=== PATIENT | female | born 1970 | race Caucasian/White ===

== ENCOUNTER 2019-12-04 02:16 | Inpatient (IN) | payer MEDICARE, OTHER ==
[~2019-12-04] VITALS: Ht 175.3 cm; Wt 72.6 kg
--- NOTE | 2019-12-04 02:40 | NUR ---
PT AAOX4. AMBULATORY. BIBRA C/O EPIGASTRIC PAIN AND NAUSEA X 1 DAY. PT STATES EPIGASTRIC PAIN THAT "SPASMS AND RADIATES TO BACK" PLACED ON MONITOR AND PULSE OX. AWAITING MD FOR EVLA.
--- NOTE | 2019-12-04 02:49 | NUR ---
URINE COLLECTED AND SENT TO LAB
[2019-12-04] MEDS ORDERED: LIDOCAINE VISCOUS 2% UD 15 ML UDC ONE (02:58)
[2019-12-04] MEDS ORDERED: MAG HYDROX/AL HYDROX/SIMETH 30 ML UDC ONE (02:58)
[2019-12-04] MEDS ORDERED: DICYCLOMINE HCL 10 MG/5 ML UDC ONE (02:59)
[2019-12-04] MEDS ORDERED: DICYCLOMINE HCL 10 MG/5 ML UDC PO ONE (03:00)
[2019-12-04] MEDS ORDERED: MAG HYDROX/AL HYDROX/SIMETH 30 ML UDC PO ONE (03:00)
[2019-12-04] MEDS ORDERED: LIDOCAINE VISCOUS 2% UD 15 ML UDC MM ONE (03:00)
--- NOTE | 2019-12-04 03:10 | NUR ---
HAND VIOLIN MAKER AT BEDSIDE
[2019-12-04 03:14] LABS: APPEARANCE,URINE Clear (CLEAR); BILIRUBIN,URINE Negative (NEGATIVE); BLOOD, URINE Negative Ery/uL (NEGATIVE); COLOR,URINE Yellow (YELLOW); KETONES,URINE 40 (NEGATIVE); LEUKOCYTE ESTERASE ,URINE Negative (NEGATIVE); NITRITE, URINE Negative (NEGATIVE); PH,URINE 5.5 (5.0-8.0); PROTEIN,URINE Negative (NEGATIVE); UGLUCOSE Negative (NEGATIVE); UROBILINOGEN,URINE 0.2 EU/dL (0.2)
[2019-12-04 03:14] LABS: BASOPHILS # (AUTO) 0.1 /CMM (0.0-0.2); BASOPHILS % (AUTO) 0.8 % (0.0-2.0); EOSINOPHILS % (AUTO) 1.1 % (0.0-6.0); HEMATOCRIT 41 % (33-45); HEMOGLOBIN 13.5 g/dL (11.5-14.8); LYMPHOCYTES # (AUTO) 1.2 /CMM (0.8-4.8); LYMPHOCYTES % (AUTO) 16.4 % (20.0-44.0); MEAN CORPUSCULAR HGB CONC 33 g/dl (31.0-36.0); MEAN CORPUSCULAR VOLUME 94 fL (82-100); MONOCYTES # (AUTO) 0.4 /CMM (0.1-1.30); MONOCYTES % (AUTO) 5.3 % (2.0-12.0); NEUTROPHILS # (AUTO) 5.7 /CMM (1.8-8.9); NEUTROPHILS % (AUTO) 76.4 % (43.0-81.0); PLATELET COUNT (AUTO) 201 /CMM (150-450); RED BLOOD CELL COUNT(AUTO) 4.36 MIL/uL (4.0-5.2); WHITE BLOOD COUNT (AUTO) 7.4 K/uL (4.3-11.0)
[2019-12-04 03:23] LABS: CALCIUM, SERUM 9.6 mg/dL (8.5-10.1); CARBON DIOXIDE 26 mmol/L (21-32); CHLORIDE 106 mmol/L (98-107); CREATININE 0.9 mg/dL (0.6-1.3); GLUCOSE 101 mg/dL (74-106); POTASSIUM 3.8 mmol/L (3.5-5.1); SODIUM SERUM 140 mmol/L (136-145); UREA NITROGEN, BLOOD 16 mg/dL (7-18)
[2019-12-04 03:37] LABS: ALANINE AMINOTRANSFERASE 18 U/L (12-78); ALBUMIN 3.7 g/dL (3.4-5.0); ALKALINE PHOSPHATASE 48 U/L (46-116); ASPARTATE AMINOTRANSFERASE 16 U/L (15-37); BILIRUBIN,DIRECT 0.1 mg/dL (0.0-0.2); BILIRUBIN,TOTAL 0.6 mg/dL (0.2-1.0); TOTAL PROTEIN, SERUM 7.1 g/dL (6.4-8.2)
--- NOTE | 2019-12-04 03:46 | NUR ---
XRAY AT BEDSIDE
--- NOTE | 2019-12-04 03:47 | NUR ---
UC AT BEDSIDE
[2019-12-04] MEDS ORDERED: IOHEXOL-300 100 ML VIAL IV ONE (04:09)
[2019-12-04] MEDS ORDERED: CT SWABBABLE VALVE TRANS SET 1 EA INFUS.SET MC ONE (04:09)
[2019-12-04] MEDS ORDERED: IV NS 0.9% 250 ML IV ONE (04:09)
[2019-12-04] MEDS ORDERED: HYDROMORPHONE 1 MG/1 ML DISP.SYRIN ONE ×2 (05:21→06:19)
[2019-12-04] MEDS ORDERED: HYDROMORPHONE 1 MG/1 ML DISP.SYRIN IV ONE ×2 (05:30→07:00)
[2019-12-04] MEDS ORDERED: IV NS 0.9% 1,000 ML IV PRN (06:15)
--- NOTE | 2019-12-04 06:15 | NUR ---
ms bed 115-2
--- NOTE | 2019-12-04 06:25 | NUR ---
VERBAL ORDER FROM DR MENDOZA DILAUDID 1MG IVP ONCE. NEW ORDER NOTED
[2019-12-04] MEDS ORDERED: ONDANSETRON HCL/PF 4 MG/2 ML VIAL IVP PRN ×2 (06:30→11:00)
[2019-12-04] MEDS ORDERED: ACETAMINOPHEN 325 MG TABLET PO PRN ×2 (06:30→11:00)
--- NOTE | 2019-12-04 07:33 | NUR ---
REPORT GIVEN TO BRIGETTE ON FIRST FLOOR
[2019-12-04] MEDS ORDERED: Z GUARD REMEDY 2 OZ OINT TP PRN ×2 (07:40→11:00)
[2019-12-04 07:59] VITALS: BP 118/66
[2019-12-04 08:00] VITALS: BP_SYST 108; BP_SYST 118; BP_DIAS 59; BP_DIAS 66
--- NOTE | 2019-12-04 08:00 | NUR ---
patient wheeled via wheelchair accompanied by emt in no distress, RN assigned at bedside to assume care.
[2019-12-04] MEDS: MORPHINE SULFATE INJ 2 MG/ML DISP.SYRIN IV PRN ×3 (08:38→21:01)
--- NOTE | 2019-12-04 08:43 | NUR ---
RN INITIAL NOTES Received pt from er via wheelchair. A/O x 4. Verbally responsive and able to make needs known. Complain of pain on medial abdomen, 8/10 and describe it as radiating and stubbing. Able to move upper and lower extremities. No edema noted on both upper an lower extremities. Skin is intact. IV line R AC with NS running @75 cc.hr. Morphine given. Will continue to monitor
--- NOTE | 2019-12-04 10:58 | NUR ---
RN NOTES Spoke with jenny Roberson to do low intermittent suction on NGT
[2019-12-04] MEDS ORDERED: HYDROCODONE/APAP 5/325MG 1 EACH TABLET PO PRN (11:00)
[2019-12-04] MEDS ORDERED: MAG HYDROX/AL HYDROX/SIMETH 30 ML UDC PO PRN (11:00)
[2019-12-04] MEDS ORDERED: ZOLPIDEM TARTRATE 5 MG TABLET PO PRN (11:00)
[2019-12-04] MEDS ORDERED: MAGNESIUM HYDROXIDE 30 ML UDC PO PRN (11:00)
[2019-12-04] MEDS: IV D5/0.45 NACL 1,000 ML IV PRN ×2 (13:28→21:05)
--- NOTE | 2019-12-04 13:29 | NUR ---
CNC MECHANIC NOTE PER DR LUCAS OK TO STOP NS IVF ORDERED AND STAR D51/[address] RAMO PATEL AT BEDSIDE OK TO GIVE ICE CHIPS WILL F\U
[2019-12-04 16:00] VITALS: BP 135/79
--- NOTE | 2019-12-04 16:15 | NUR ---
MS RN NOTE PATIENT REFUSING TO HAVE N G TUBE STATED HER BACK OF HER THROAT PAIN REFUSE TO HAVE MORPHINE, DR LÓPEZ NOTIFIED, UNABLE TO REACH DR RALPH
--- NOTE | 2019-12-04 17:07 | NUR ---
MS RN NOTE N GTUBE REMOVED PER PATIENT REQUEST, DR TREVINO NOTIFIED STATED ITS OK FOR NOW, WILL MONITOR FOR VOMITING, NOTIFIED TO DR LÓPEZ THAT CANT REACH DR RALPH GI DOCTOR
--- NOTE | 2019-12-04 19:20 | NUR ---
RN OPENING NOTES RECEIVED PATIENT IN BED, A/OX4, ABLE TO MAKE NEEDS KNOWN. ON ROOM AIR, TOLERATING WELL, NO SOB/RESPIRATORY DISTRESS NOTED. NOT C/O PAIN AT THE MOMENT. STATED SHE WILL ASK FOR PAIN MEDICATION LATER FOR PAIN AND TO HELP HER SLEEP. IV SITE RIGHT AC 20G, FLUSHING AND PATENT, WITH ON GOING D5 1/2 NS RUNNING AT 150CC/HR, NO INFILTRATION NOTED. PER REPORT PATIENT AMBULATORY. SAFETY MEASURES IN PLACE; CALL LIGHT WITHIN REACH, SIDE RAILS UP X2, HOB ELEVATED, BED LOCKED AND IN LOW POSITION. WILL CONT TO MONITOR PT.
[2019-12-04 20:00] VITALS: BP 113/68
[2019-12-05] MEDS: IV D5/0.45 NACL 1,000 ML IV PRN ×2 (03:56→13:48)
[2019-12-05 04:00] VITALS: BP 98/62
[2019-12-05 06:56] LABS: BASOPHILS % (AUTO) 0.4 % (0.0-2.0); HEMATOCRIT 35 % (33-45); HEMOGLOBIN 11.7 g/dL (11.5-14.8); LYMPHOCYTES # (AUTO) 0.8 /CMM (0.8-4.8); LYMPHOCYTES % (AUTO) 16.3 % (20.0-44.0); MEAN CORPUSCULAR HGB CONC 33 g/dl (31.0-36.0); MEAN CORPUSCULAR VOLUME 94 fL (82-100); MONOCYTES # (AUTO) 0.4 /CMM (0.1-1.30); MONOCYTES % (AUTO) 7.9 % (2.0-12.0); NEUTROPHILS # (AUTO) 3.7 /CMM (1.8-8.9); NEUTROPHILS % (AUTO) 73.4 % (43.0-81.0); PLATELET COUNT (AUTO) 159 /CMM (150-450); RED BLOOD CELL COUNT(AUTO) 3.76 MIL/uL (4.0-5.2)
--- NOTE | 2019-12-05 06:58 | NUR ---
RN CLOSING NOTES PATIENT SLEEPING IN BED, BUT EASY TO AROUSE, A/OX4. NO ACUTE CHANGES THROUGHOUT SHIFT. KEPT NPO. ON ROOM AIR, TOLERATING WELL, NO SOB/RESPIRATORY DISTRESS NOTED. NOT C/O PAIN AT THE MOMENT. IV SITE RIGHT FA 22G, FLUSHING AND PATENT, WITH ON GOING D5 1/2 NS RUNNING AT 150CC/HR, NO INFILTRATION NOTED. SAFETY MEASURES IN PLACE; CALL LIGHT WITHIN REACH, SIDE RAILS UP X2, HOB ELEVATED, BED LOCKED AND IN LOW POSITION. ALL MD ORDERS ATTENDED. WILL CONT TO MONITOR PT. WILL ENDORSE TO AM NURSE FOR ANNA.
[2019-12-05 07:15] LABS: THYROID STIMULATING HORMONE 2.794 uIU/mL (0.358-3.74)
[2019-12-05 07:21] LABS: ALBUMIN 2.8 g/dL (3.4-5.0); BILIRUBIN,TOTAL 0.6 mg/dL (0.2-1.0); CALCIUM, SERUM 7.8 mg/dL (8.5-10.1); CREATININE 0.7 mg/dL (0.6-1.3); MAGNESIUM 2.1 mg/dL (1.8-2.4); PHOSPHORUS 2.8 mg/dL (2.5-4.9); POTASSIUM 4.2 mmol/L (3.5-5.1); TOTAL PROTEIN, SERUM 5.6 g/dL (6.4-8.2)
[2019-12-05 08:00] VITALS: BP_SYST 113; BP_SYST 142; BP_DIAS 55; BP_DIAS 76
[2019-12-05] MEDS: PANTOPRAZOLE 40 MG VIAL IV SCH (10:24)
[2019-12-05] MEDS ORDERED: DIATR MEGLU/DIATRIZOATE SODIUM 120 ML BOTTLE (GASTROGRAPHIN) ONE (10:56)
--- NOTE | 2019-12-05 11:00 | NUR ---
Patient left unit for small bowel follow through exam with IV fluids held, heplock flushed in stable condition
[2019-12-05 13:00] VITALS: BP 121/73
[2019-12-05 16:00] VITALS: BP 106/73
--- NOTE | 2019-12-05 19:06 | NUR ---
RN closing note Patient without change in condition throughout shift. Small bowel follow through completed, no obstruction found. Will advance diet to clear liquids. States pain is improved and reports 5 loose BM after the prodeure, but has subsided. No n/v. Desires discharge in AM.
--- NOTE | 2019-12-05 19:30 | NUR ---
MS RN OPENING NOTE RECEIVED PATIENT IN BED. A/O X4. TOLERATING ROOM AIR. RESPIRATIONS ARE EVEN AND UNLABORED. NO S/S SOB NOTED. DENIES PAIN AT THIS TIME. IN NO APPARENT DISTRESS. IV ACCESS IN LFA RUNNING D51/2NS@150ML/HR. BED IS LOW AND LOCKED, HOB IN SEMI FOWLERS, SIDE RIALS UP X2, CALL LIGHT WITHIN REACH. WILL CONTINUE TO MONITOR.
[2019-12-05 20:00] VITALS: BP 107/68
[2019-12-06] MEDS: IV D5/0.45 NACL 1,000 ML IV PRN ×2 (00:20→06:39)
[2019-12-06 04:00] VITALS: BP 95/61
--- NOTE | 2019-12-06 06:32 | NUR ---
MS RN CLOSING NOTE PATIENT IN BED. A/O X4. REMAINS TOLERATING ROOM AIR. RESPIRATIONS ARE EVEN AND UNLABORED. NO SOB NOTED. NO C/O PAIN THROUGHOUT SHIFT. NO DISTRESS NOTED. IV ACCESS MAINTAINED IN LFA RUNNING D51/2NS@150ML/HR. BED IS LOW AND LOCKED, HOB IN SEMI FOWLERS, SIDE RIALS UP X2, CALL LIGHT WITHIN REACH. WILL ENDORSE OT NEXT SHIFT.
[2019-12-06 07:21] LABS: BASOPHILS % (AUTO) 0.3 % (0.0-2.0); EOSINOPHILS % (AUTO) 3.4 % (0.0-6.0); HEMATOCRIT 36 % (33-45); HEMOGLOBIN 11.9 g/dL (11.5-14.8); LYMPHOCYTES % (AUTO) 22.3 % (20.0-44.0); MEAN CORPUSCULAR HGB CONC 33 g/dl (31.0-36.0); MEAN CORPUSCULAR VOLUME 94 fL (82-100); MONOCYTES # (AUTO) 0.4 /CMM (0.1-1.30); MONOCYTES % (AUTO) 7.6 % (2.0-12.0); NEUTROPHILS # (AUTO) 3.1 /CMM (1.8-8.9); NEUTROPHILS % (AUTO) 66.4 % (43.0-81.0); PLATELET COUNT (AUTO) 166 /CMM (150-450); WHITE BLOOD COUNT (AUTO) 4.7 K/uL (4.3-11.0)
[2019-12-06 07:40] LABS: CALCIUM, SERUM 8.1 mg/dL (8.5-10.1); CREATININE 0.7 mg/dL (0.6-1.3); PHOSPHORUS 2.7 mg/dL (2.5-4.9); POTASSIUM 3.9 mmol/L (3.5-5.1)
[2019-12-06 08:00] VITALS: BP 104/70
[2019-12-06] MEDS: PANTOPRAZOLE 40 MG VIAL IV SCH (08:23)
--- NOTE | 2019-12-06 15:15 | NUR ---
Discharge Note: Patient was discharged to home today via private auto accompanied by her son. VSS, denies pain. Toleraing food and fluids well. Provided instructions on abdominal pain, flu/pna vaccine, MRSA, VTE prophylaxsis, and to return to ER if symptoms return. Patient to schedule appointment with PCP for follow up. IV removed. All personal belongings accounted for. Escorted to lobby for discharge.
== END 2019-12-06 15:12 | disposition home or self-care (01) | DRG 389 ==
LOC: ER 02:22 → MEDSG1 07:28
PROVIDERS: ADMIT Student in an Organized Health Care Education/Training Program; ATTEND Student in an Organized Health Care Education/Training Program
DX: K56.609 Unspecified intestinal obstruction, unspecified as to partial versus complete obstruction (principal); E44.0 Moderate protein-calorie malnutrition; K57.30 Diverticulosis of large intestine without perforation or abscess without bleeding; E88.09 Other disorders of plasma-protein metabolism, not elsewhere classified; Z68.23 Body mass index [BMI] 23.0-23.9, adult
CPT/HCPCS: 36415; 71045-TC; 74018; 74250-TC; 76705-TC; 80048-TC; 80053-TC; 80061-TC; 80076-TC; 81000-TC; 83690-TC; 83735-TC; 84100-TC; 84443-TC; 84484-TC; 84703-TC; 85025-TC; 87081-TC; C9113; G0378; J1170; J2270; J3490; J7030; J7050; Q9963; Q9967